=== PATIENT | male | born 1990 | race African-American/Black ===

== ENCOUNTER 2017-07-22 00:13 | Emergency (ER) | payer SELFPAY ==
[~2017-07-22] VITALS: Ht 182.9 cm; Wt 80.0 kg
[2017-07-22 00:24] VITALS: BP 155/99
== END 2017-07-22 04:00 | disposition left against medical advice (07) ==
LOC: ER 00:13
DX: M79.641 Pain in right hand (principal)
CPT/HCPCS: 99281